=== PATIENT | female | born 1985 | race Caucasian/White ===

== ENCOUNTER → 2016-05-14 | Outpatient (CLI) | payer MEDICAID ==
[~2016-05-14] MED LIST: ACET325T33 PO; CEPH-443 PO
--- NOTE | 2016-05-14 11:15 | RADRPT ---
PROCEDURE: XR Chest. CLINICAL INDICATION: Positive PPD TECHNIQUE: Chest PA. COMPARISON: No comparison available. FINDINGS: The mediastinal structures are unremarkable. The heart is normal in size and configuration. The pu lmonary vascularity is normal. The lung grace are unremarkable. No consolidation is identified. The pleural spaces are unremarkable. The axial skeleton is unremarkable. There is no radiographic evidence of tuberculosis. IMPRESSION: No active intrathoracic disease. RPTAT: HGDB .Artemio Milton MD, MD Date Time Electronically viewed and signed by .Artemio Milton MD, MD on 05/14/2016 11:14 .B/
== END | disposition home or self-care (01) ==
LOC: RAD 10:36
PROVIDERS: ATTEND Obstetrics & Gynecology
DX: R76.11 Nonspecific reaction to tuberculin skin test without active tuberculosis (principal); Z11.1 Encounter for screening for respiratory tuberculosis
CPT/HCPCS: 71010

== ENCOUNTER 2016-05-16 08:17 | Emergency (ER) | payer MEDICAID ==
[~2016-05-16] VITALS: Ht 154.9 cm; Wt 69.4 kg
[2016-05-16 08:25] VITALS: Ht 154.9 cm; Wt 69.4 kg
[2016-05-16 09:04] LABS: ADD SCAN DIFF NO
[2016-05-16 09:07] LABS: BASOPHILS % 0.2 % (0.0-2.0); EOSINOPHILS # 0.1 10^3/ul (0.0-0.5); EOSINOPHILS % 1.2 % (0.0-7.0); HEMATOCRIT 39.1 % (37.0-47.0); HEMOGLOBIN 13.4 g/dl (12.0-16.0); LYMPHOCYTES # 1.9 10^3/ul (0.8-2.9); LYMPHOCYTES % 18.5 % (15.0-51.0); MEAN CORPUSCULAR HEMOGLOBIN 30.2 pg (29.0-33.0); MEAN CORPUSCULAR HGB CONC 34.3 g/dl (32.0-37.0); MEAN CORPUSCULAR VOLUME 88.1 fl (82.0-101.0); MEAN PLATELET VOLUME 9.6 fl (7.4-10.4); MONOCYTE # 0.4 10^3/ul (0.3-0.9); MONOCYTES % 4.2 % (0.0-11.0); NEUTROPHIL # 7.6 10^3/ul (1.6-7.5); NEUTROPHILS % 75.5 % (39.0-77.0); PLATELET COUNT 266 10^3/UL (140-415); RED BLOOD COUNT 4.44 10^6/ul (4.20-5.40); RED CELL DISTRIBUTION WIDTH 12.5 % (11.5-14.5); WHITE BLOOD COUNT 10.1 10^3/ul (4.8-10.8)
--- NOTE | 2016-05-16 09:15 | RADRPT ---
PROCEDURE: US OB. CLINICAL INDICATION: Size and dates , pelvic pain TECHNIQUE: Multiple sonographic images of the pelvis and gravid uterus were obtained. The images were reviewed on a PACS workstation. COMPARISON: No prior studies are available for comparison. FINDINGS: There is a single viable intrauterine gestation. Cardiac activity is present with 148 beats per min blackfeet. There is a variable presentation. The placenta is posterior. There is no evidence for an abruption or placenta previa. There is a normal amount of amniotic fluid with a MVP = 3.3 cm. Measurements were made in order to determine age. The results are as follows: BPD =2.9. cm HC =10.3 cm AC =9.7 cm FL =1.6 cm Estimated gestational age of approximately 15 weeks and 1 day based on ultrasound measurements. Clinical age: 15 weeks and 1 day. The estimated date of delivery is 11/06/16, based on ultrasound measurements. The EFW = 117 g, 41.2%, based on LMP age. The ovaries were not visualized. RPTAT: AA IMPRESSION: Single viable intrauterine gestation of approximately 15 weeks and 1 day based on ultrasound measur ements. .Ravindra Carrington MD, Date Time Electronically viewed and signed by .Ravindra Carrington MD, on 05/16/2016 09:15 .S/
[2016-05-16 09:16] LABS: ALBUMIN 4.1 g/dl (3.3-4.9)
[2016-05-16 09:19] LABS: CREATININE 0.38 mg/dl (0.44-1.00); TOTAL PROTEIN 8.2 g/dl (6.1-8.1)
--- NOTE | 2016-05-16 09:19 | ERD ---
ER Documentation Chief Complaint Date/Time DATE: 05/16/16 TIME: 09:18 Chief Complaint 14 weeks left LLQ pain HPI This is a 30-year-old female states that she is 14 weeks presenting to the emergency room complaining of left upper quadrant abdominal pain since 3:00 this morning. Patient states the pain comes and goes and she rates it around 5 out of 10. Patient denies any nausea, vomiting, diarrhea. Patient denies any vaginal bleeding or dysuria. She denies taking any other medications. Denies any medical problems. Denies fever ROS All systems reviewed and are negative except as per history of present illness. Medications Home Meds Active Scripts Cephalexin* (Keflex*) 500 Mg Capsule, 500 MG PO QID for 7 Days, CAP Prov:JUSTO BENTNO PA-C 05/16/16 Acetaminophen* (Tylenol*) 325 Mg Tablet, 650 MG PO Q4H Y for MILD PAIN LEVEL 1-3 , #30 TAB Prov:JUSTO BENTON PA-C 05/16/16 Allergies Allergies: Coded Allergies: No Known Allergy (Unverified , 05/16/16) PMhx/Soc Medical and Surgical Hx: pt denies Medical Hx, pt denies Surgical Hx Hx Alcohol Use: No Hx Substance Use: No Hx Tobacco Use: No Physical Exam Vitals Vital Signs Date Time Temp Pulse Resp B/P Pulse Ox O2 Delivery O2 Flow Rate FiO2 05/16/16 08:25 98.0 75 18 102/65 100 Physical Exam GENERAL: well-developed/well-nourished, in no apparent distress, non-toxic appearing HENT: NC/AT, moist mucous membranes EYES: Conjunctiva normal NECK: Supple, no lymphadenopathy PULM: CTA bilaterally, no rales, rhonchi, or wheezing heard CV: Normal S1S2, RRR, good capillary refill GI: Soft, distended due to , mild tender to palpation left upper quadrant Normal bowel sounds, no masses or organomegaly felt on exam No gross peritonitis, no bruits Negative Rovsing, negative Potts, negative McBurney's point, Negative CVAT BACK: No masses EXT: No clubbing, cyanosis, or edema NEURO: Alert and Orientated SKIN: Intact, normal turgor PSYCH: Normal mood and mentation Result Diagram: 05/16/16 0835 05/16/16 0835 Results 24 hrs Laboratory Tests Test 05/16/16 08:35 05/16/16 09:25 Alanine Aminotransferase (ALT/SGPT) 28IU/L Albumin 4.1g/dl Albumin/Globulin Ratio 1.00 Alkaline Phosphatase 85IU/L Anion Gap 18 Aspartate Amino Transf (AST/SGOT) 22IU/L Basophils # 0.010^3/ul Basophils % 0.2% Beta HCG, Quantitative 83253.0mIU/ml Blood Urea Nitrogen 4mg/dl Calcium Level 9.3mg/dl Carbon Dioxide Level 24mmol/L Chloride Level 102mmol/L Creatinine 0.38mg/dl Direct Bilirubin 0.00mg/dl Eosinophils # 0.110^3/ul Eosinophils % 1.2% Globulin 4.10g/dl Glucose Level 86mg/dl Hematocrit 39.1% Hemoglobin 13.4g/dl Indirect Bilirubin 0.0mg/dl Lipase 41U/L Lymphocytes # 1.910^3/ul Lymphocytes % 18.5% Mean Corpuscular Hemoglobin 30.2pg Mean Corpuscular Hemoglobin Concent 34.3g/dl Mean Corpuscular Volume 88.1fl Mean Platelet Volume 9.6fl Monocytes # 0.410^3/ul Monocytes % 4.2% Neutrophils # 7.610^3/ul Neutrophils % 75.5% Nucleated Red Blood Cells # 0.010^3/ul Nucleated Red Blood Cells % 0.0/100WBC Platelet Count 14428^3/UL Potassium Level 4.0mmol/L Red Blood Count 4.4410^6/ul Red Cell Distribution Width 12.5% Sodium Level 140mmol/L Total Bilirubin 0.0mg/dl Total Protein 8.2g/dl White Blood Count 10.110^3/ul Urine Bacteria FEW Urine Bilirubin NEGATIVE Urine Clarity HAZY Urine Color LT. YELLOW Urine Glucose NEGATIVE% Urine Hemoglobin TRACE Urine Ketones NEGATIVE Urine Leukocyte Esterase TRACE Urine Microscopic RBC NONE SEEN/HPF Urine Microscopic WBC 2-5/HPF Urine Nitrite NEGATIVE Urine Specific [place] <=1.005 Urine Squamous Epithelial Cells MODERATE Urine Total Protein NEGATIVE Urine Urobilinogen 0.2 E.U./dL Urine pH 6.5 OB ultrasound: There is a single viable intrauterine gestation. Cardiac activity is present with 148 beats per minute. There is a variable presentation. The placenta is posterior. There is no evidence for an abruption or placenta previa. There is a normal amount of amniotic fluid with a MVP = 3.3 cm. Measurements were made in order to determine age. The results are as follows: BPD = 2.9. cm HC = 10.3 cm AC = 9.7 cm FL = 1.6 cm Estimated gestational age of approximately 15 weeks and 1 day based on ultrasound measurements. Clinical age: 15 weeks and 1 day. The estimated date of delivery is 11/06/16, based on ultrasound measurements. The EFW = 117 g, 41.2%, based on LMP age. The ovaries were not visualized. RPTAT: AA IMPRESSION: Single viable intrauterine gestation of approximately 15 weeks and 1 day based on ultrasound measurements. Procedures/MDM This is a 30-year-old female states that she is 14 weeks presenting to the emergency room complaining of mild to moderate left upper quadrant abdominal pain that comes and goes since 3:00am. On examination patient was mildly tender to palpation in the left upper quadrant. My differentials include but not limited to urinary tract infection, pyelonephritis , nephrolithiasis, pancreatitis, cholecystitis, fatty liver, diverticulitis, or other acute abdominal conditions. Lab work was done in the ED, Lab work was drawn. CBC did not show any evidence of leukocytosis or anemia. CMP did not show any evidence of renal, liver, or electrolyte abnormalities. Lipase was normal. UA did show trace leukocyte esterase and 2-5 white blood cell count therefore patient will be empirically treated for a urinary tract infection with outpatient Keflex treatment. An ultrasound was done in the ED and showed a single viable intrauterine gestation without any evidence of ectopic, ovarian torsion or . A gallbladder ultrasound was done in the ED and it showed evidence of fatty liver, I discussed the patient that she would need to follow- up with her primary care physician regarding this. I reexamined patient and she has very mild pain in the left upper quadrant, due to her I did not want to do a CT scan due to the risks outweigh the benefits at this time. I discussed with patient to follow-up at this facility tomorrow or sooner if she continues to have pain for any worsening signs or symptoms or not improving as expected. I discussed to follow-up with her primary care physician and OB/ [facility]. Prescription Keflex and Tylenol was provided. Patient understands and agrees with this plan OB ultrasound: Single viable intrauterine gestation of approximately 15 weeks and 1 day based on ultrasound measurement Gallbladder ultrasound: Fatty infiltration of the liver. No evidence of gallstones. Departure Diagnosis: Primary Impression: Abdominal pain Condition: Stable JUSTO BENTON PA-C May 16, 2016 09:19
[2016-05-16 09:20] LABS: CALCIUM 9.3 mg/dl (8.4-10.2)
--- NOTE | 2016-05-16 09:33 | RADRPT ---
PROCEDURE: US Abdomen. CLINICAL INDICATION: abdominal pain TECHNIQUE: Multiple real-time images were acquired of the patient's right upper quadrant abdomen a nd retroperitoneum utilizing a high resolution transducer. COMPARISON: None FINDINGS: The liver demonstrates increased echogenicity. The liver is normal in size and no focal solid lesio ns are seen. The liver measures 16.6 cm in length. The portal vein is patent with normal direction o f flow. No intrahepatic biliary dilatation is seen. No gallstones are identified within the gallbladder. There is no pericholecystic fluid or gallbladd er wall thickening. The common bile duct measures 4 mm in maximal dimension. The visualized portions of the pancreas are unremarkable. The tail of the pancreas is not seen. No free fluid is identified. The right kidney is normal in size, and demonstrate normal echogenicity and cortical thickness. The right kidney measures 11.9 cm in long dimension. There is no evidence of hydronephrosis. There are no kidney stones. RPTAT: AA IMPRESSION: Fatty infiltration of the liver. No evidence of gallstones. .Ravindra Carrington MD, Date Time Electronically viewed and signed by .Ravindra Carrington MD, MD on 05/16/2016 09:32 .S/
[2016-05-16 09:46] LABS: ADD UMIC YES; URINE BILIRUBIN (Dip) NEGATIVE (NEGATIVE); URINE BLOOD (Dip) TRACE (NEGATIVE); URINE COLOR LT. YELLOW (YELLOW); URINE GLUCOSE (Dip) NEGATIVE (NEGATIVE); URINE KETONES (Dip) NEGATIVE (NEGATIVE); URINE LEUKOCYTE ESTERASE (Dip) TRACE (NEGATIVE); URINE NITRITE (Dip) NEGATIVE (NEGATIVE); URINE TOTAL PROTEIN (Dip) NEGATIVE (NEGATIVE); URINE UROBILINOGEN (Dip) 0.2 E.U./dL (0.1-1.0)
[2016-05-16 09:56] LABS: URINE RBCS NONE SEEN /HPF (0)
[2016-05-16 09:57] LABS: BACTERIA,URINE FEW; SQUAMOUS EPITHELIAL CELL,UR MODERATE
[2016-05-16] MEDS ORDERED: ACET325T33 PO (10:13)
[2016-05-16] MEDS ORDERED: CEPH-443 PO (10:27)
== END 2016-05-16 10:34 | disposition home or self-care (01) ==
LOC: FTE 08:17
DX: O26.892 Other specified pregnancy related conditions, second trimester (principal); R10.12 Left upper quadrant pain; R10.2 Pelvic and perineal pain; Z3A.15 15 weeks gestation of pregnancy
CPT/HCPCS: 36415; 76705; 76805; 80053; 81001; 83690; 84702; 85025; Z7502; 81003

== ENCOUNTER 2016-11-01 07:45 | Inpatient (IN) | payer MEDICAID ==
[~2016-11-01] VITALS: Ht 152.4 cm; Wt 82.7 kg
[2016-11-01] VITALS (12 sets, daily range): BP systolic 90–105; BP diastolic 54–64; PULSE 67–96; RESP 18–19; Ht 152.4 cm; Wt 82.7 kg
[~2016-11-01 07:45] MED LIST changes: +OXYTOCIN 30 UNITS/LR 500 ML BAG IV ONE
[2016-11-01] MEDS ORDERED: PRENAT PO (08:00)
[2016-11-01] MEDS ORDERED: LACTATED RINGER'S 1,000 ML IV PRN (09:06)
[2016-11-01] MEDS ORDERED: METHYLERGONOVINE 0.2 MG INJ IM PRN ×2 (09:30→22:30)
[2016-11-01] MEDS ORDERED: AMPICILLIN 2 GM/NS (PMX) 100 ML IV ONE (09:30)
[2016-11-01] MEDS ORDERED: OXYTOCIN 30 UNITS/LR 500 ML IV PRN ×2 (09:30→22:30)
[2016-11-01] MEDS ORDERED: LIDOCAINE 1% (MPF) 30 ML INJ INJ PRN (09:30)
[2016-11-01] MEDS ORDERED: CARBOPROST 250 MCG INJ IM PRN ×2 (09:30→22:30)
[2016-11-01] MEDS ORDERED: IBUPROFEN 600 MG TAB PO PRN (09:30)
[2016-11-01] MEDS ORDERED: MISOPROSTOL 200 MCG TAB PR PRN ×2 (09:30→22:30)
[2016-11-01] MEDS ORDERED: OXYTOCIN 30 UNITS/LR 500 ML IV SCH ×3 (09:30→11:30)
[2016-11-01] MEDS ORDERED: BUTORPHANOL 2 MG INJ IV PRN (09:30)
[2016-11-01] MEDS: LACTATED RINGER'S 1,000 ML IV SCH ×2 (09:55→18:28)
[2016-11-01 10:02] LABS: BASOPHILS % 0.2 % (0.0-2.0); EOSINOPHILS # 0.1 10^3/ul (0.0-0.5); EOSINOPHILS % 0.5 % (0.0-7.0); HEMATOCRIT 36.8 % (37.0-47.0); HEMOGLOBIN 12.4 g/dl (12.0-16.0); LYMPHOCYTES # 1.6 10^3/ul (0.8-2.9); LYMPHOCYTES % 14.3 % (15.0-51.0); MEAN CORPUSCULAR HGB CONC 33.7 g/dl (32.0-37.0); MONOCYTE # 0.6 10^3/ul (0.3-0.9); MONOCYTES % 5.1 % (0.0-11.0); NEUTROPHILS % 79.4 % (39.0-77.0); PLATELET COUNT 248 10^3/UL (140-415); RED BLOOD COUNT 4.28 10^6/ul (4.20-5.40); RED CELL DISTRIBUTION WIDTH 13.2 % (11.5-14.5); WHITE BLOOD COUNT 11.3 10^3/ul (4.8-10.8)
[2016-11-01 10:10] LABS: INR 0.95; PARTIAL THROMBOPLASTIN TIME 28.1 Sec (25.0-35.0); PROTIME 12.7 Sec (12.2-14.2)
--- NOTE | 2016-11-01 10:58 | TRIAGE ---
OB Triage Datetime Report Generated by CPN: 11/01/2016 08:27 Datetime: 11/01/2016 08:03 Vaginal Exam Dilatation (cms): 2.5 Effacement (%): 50 Station: -2 Exam By: ashlyn Vaginal Bleeding: None Cervix, Consistency: Moderate Cervix, Position: Posterior Datetime: 11/01/2016 07:58 Assessment Type: Triage Maternal Assessment Level of Consciousness: Fully Conscious DTR's/Clonus: DTRs 2+; No Clonus Headache: Denies Blurred Vision: No Respiratory Effort: Unlabored; Regular Rhythm; Equal Expansion Breath Sounds, Left: Clear and Equal Breath Sounds, Right: Clear and Equal Nausea/Vomiting: Denies RUQ Epigastric Pain: Denies Lower Extremities Edema: None Degree: None Upper Extremities Edema: None Degree: None Facial Edema: None Fall Risk Assessment History of Falling: (0) No Secondary Diagnosis: (0) No Ambulatory Aid: (0) Bedrest/Nurse Assist IV Therapy: (0) No Gait: (0) Normal/Bedrest/Immobile Mental Status: (0) Oriented to Own Ability Fall Score: 0 Fall Risk Score Definition: No Risk: No action required Datetime: 11/01/2016 07:56 Labor Evaluation Monitor Mode: External Heart Rate Monitor Mode: External US Datetime: 11/01/2016 07:55 EGA: 39.1 Datetime: 11/01/2016 07:52 Time of Arrival: 11/01/2016 07:41 Arrived By: Wheelchair Arrived From: Home Chief Complaint: PT HERE C/O UC'S SINCE 399 Movement: Present Contractions: Irregular Rupture of Membranes: Denies Vaginal Bleeding: None Vaginal Discharge: Denies Recent Sexual Intercouse: Denies Abdominal Trauma: Not Applicable Patient Complaints: Contractions; Cramping; Back Pain Time Provider Notified: 11/01/2016 08:25 Provider Notified: COLLEEN Initial Plan: DARREN/AARON
[2016-11-01] MEDS ORDERED: AMPICILLIN 1 GM/NS (PMX) 50 ML IV SCH (13:00)
--- NOTE | 2016-11-01 13:00 | HP ---
Date/Time of Note Date/Time of Note DATE: 11/01/16 TIME: 12:59 OB - History Hx of Present Free Text/Dictation IN ACTIVE LABOR Care: Good Care Ultrasounds: Normal mid trimester US Obstetrical Complications: None Medical Complications: None Past Family/Social History * Past Medical, Surgical, Family and Obstetric Histories reviewed from chart. OB Admission Exam Vital Signs Vital Signs Vital Signs Date Time Temp Pulse Resp B/P Pulse Ox O2 Delivery O2 Flow Rate FiO2 11/01/16 08:01 98.4 81 18 105/64 97 Room Air Physical Exam HEENT: WNL Heart: Rhythm Normal Lungs: Clear, Equal Abdomen: WNL Extremities: Normal Reflexes: Normal Cervical Dilatation: 3cm Station: Ballotable Membranes: Ruptured Amniotic Fluid: Clear Accelerations: Accelerations Present Decelerations: No Decelerations Varibility: Marked Last 72 hours Lab Results CBC & BMP 11/01/16 09:12 OB Assessment/Plan Plan: Expectant Management CANDIS MACIAS MD Nov 01, 2016 13:00
[2016-11-01] MEDS ORDERED: CEFAZOLIN 2 GM/50 ML (PMX) 50 ML IVPB ONE (17:21)
[2016-11-01] MEDS ORDERED: morphine SULFATE/PF (10 MG/10 ML) INJ ONE (17:28)
[2016-11-01] MEDS ORDERED: FENTAnyl 50 MCG/ML VIAL ONE (17:29)
[2016-11-01] MEDS ORDERED: CEFAZOLIN 2 GM/50 ML (PMX) 50 ML IV SCH (17:30)
[2016-11-01] MEDS ORDERED: PHENYLephrine (100 MCG/ML) 5ML SYG ONE (17:32)
[2016-11-01] MEDS ORDERED: ONDANSETRON 4 MG INJ ONE (17:55)
[2016-11-01] MEDS ORDERED: DEXAMETHASONE 4 MG/ML 1 ML INJ ONE (17:55)
--- NOTE | 2016-11-01 18:05 | OPR ---
Operative Report Planned Procedure Free Text/Dictation term preg. in labor had variable decleration , on vaginal exam had cord prolapse next to the side of the head. Pt. for emergency c/s Procedure date Nov 01, 2016 Performed by: CANDIS MACIAS MD Assisting provider: CHET MORGAN MD Anesthesia Type: spinal Procedure Description Under satisfactory spinal anesthesia, the patient was prepped and draped and placed in a supine position, tilted to the left. Pfannenstiel incision was made , carried through the subcutaneous tissue. Bleeders brought under control with electrocautery. Fascia incised to the length of the incision. Rectus muscles from the fascia, divided midline. Peritoneum exposed, entered through a transverse incision. Exploration of abdomen revealed gravid uterus. Bladder flap was developed. Transverse incision was made in the lower segment of the uterus. Amniotic sac ruptured. [clear ] amniotic fluid noted. [] Nasal oropharyngeal suction was performed. The baby was handed to the team for immediate attention. The placenta was delivered manually intact.cord gases are sent out Uterine cavity was cleaned with wet sponge and drainage established. Uterus closed in 2 layers using one monocryl [] in continuous fashion. Peritoneal cavity irrigated with warm saline. Sponge, needle and instrument count reported to be correct. Abdominal peritoneum closed with [] continuously]. Fascia closed with one monocryl [], and skin closed with lobo. Estimated blood [id number]. Post-Procedure Findings: Live Baby [], Apgars [] and [], weight [], position [], [] presentation []cord. Specimen removed: Yes Specimen description placenta Complications: None Pt Condition post procedure: stable Disposition: PACU Physician Certification I, the undersigned physician, hereby certify that I have discussed the procedure described in this consent form with this patient (or the patient's legal dermatology sales representative), including: * The risk and benefits of the procedure; * Any adverse reactions that may reasonably be expected to occur; * Any alternative efficacious methods of treatment which may be medically viable ; * The potential problems that may occur during recuperation; * Potential for blood transfusion and associated risks/benefits; and * Any research or economic interest I may have regarding this treatment. I further certify that the patient/legally responsible person was encouraged to ask question and that all questions were answered. CANDIS MACIAS MD Nov 01, 2016 18:05
[2016-11-01 18:17] LABS: AADO2 Cord Arterial 25.5 mmHg; Arterial Cord Blood pCO2 90.5 mmHG (25-50); CBA Base Excess -13.9 mmol/L; CBA Oxygen Sat 16.4 mmHG; CBA Total Hemglobin 17.2 g/dl; Cord Blood Arterial pO2 15.9 mmHG (15.0-45.0); MODE ROOM AIR; MetHgb Cord Arterial 1.9 %
[2016-11-01 18:21] LABS: CBV Base Excess -11.3 mmol/L; CBV COHb 1.4 %; CBV Oxygen Sat 68.8 mmHG; CBV Total Hemglobin 18.8 g/dl; Cord Blood Venous AADO2 59.4 mmHg; Cord Blood Venous pO2 35.8 mmHG (15.0-45.0); MODE ROOM AIR; MetHgb Cord Venous 1.2 %; Sample Type CBV
[2016-11-01] MEDS ORDERED: HYDROmorphONE 1 MG/ML SYG IV PRN ×2 (18:30)
[2016-11-01] MEDS ORDERED: KETOROLAC 30 MG INJ IV PRN (18:30)
[2016-11-01] MEDS ORDERED: ONDANSETRON 4 MG INJ IV PRN (18:30)
[2016-11-01] MEDS ORDERED: DIPHENHYDRAMINE 50 MG INJ IV PRN (18:30)
[2016-11-01] MEDS ORDERED: ZOLPIDEM 5 MG TAB PO PRN (18:30)
[2016-11-01] MEDS ORDERED: NALOXONE (0.4 MG/ML) INJ IV PRN (18:30)
[2016-11-01] MEDS ORDERED: HYDROCODONE/APAP (5/325) TAB PO PRN (22:30)
[2016-11-01] MEDS ORDERED: NACL 0.9% 3 ML SYG IV SCH (22:30)
[2016-11-01] MEDS ORDERED: NA PHOSPHATE/BIPHOS 133 ML ENEMA PR PRN (22:30)
[2016-11-01] MEDS ORDERED: LANOLIN 7 GM TUBE TOP PRN (22:30)
[2016-11-01] MEDS: OXYTOCIN 30 UNITS/LR 500 ML IV SCH (22:33)
[2016-11-02] VITALS (7 sets, daily range): BP systolic 89–106; BP diastolic 47–58; PULSE 69–100; RESP 16–19
[2016-11-02] MEDS: OXYTOCIN 30 UNITS/LR 500 ML IV SCH (02:47)
[2016-11-02] MEDS: LACTATED RINGER'S 1,000 ML IV SCH ×4 (07:19→22:02)
--- NOTE | 2016-11-02 08:41 | QN ---
Documentation Comment doing well vss abd soft oob today CANDIS MACIAS MD Nov 02, 2016 08:41
--- NOTE | 2016-11-02 08:42 | DS ---
Date/Time of Note Date/Time of Note DATE: 11/02/16 TIME: 08:41 Discharge Summary Admission/Discharge Info Admit Date/Time Nov 01, 2016 at 08:45 Discharge Date/Time Discharge Diagnosis term preg Patient Condition: Good Hospital Course unremarkable Home Meds Reported Medications Multivit/Min/Fol Ac/Iron/Pren* ( S*) 1 Tab Tab, 1 TAB PO DAILY, TAB 11/01/16 Discontinued Scripts Cephalexin* (Keflex*) 500 Mg Capsule, 500 MG PO QID for 7 Days, CAP Prov:JUSTO BENTON PA-C 05/16/16 Acetaminophen* (Tylenol*) 325 Mg Tablet, 650 MG PO Q4H Y for MILD PAIN LEVEL 1-3 , #30 TAB Prov:JUSTO BENTON PA-C 05/16/16 Primary Care Provider Care Physician No Primary Pending Labs Laboratory Tests Test 11/01/16 09:12 11/01/16 18:09 11/01/16 18:12 White Blood Count 11.310^3/ul (4.8-10.8) Red Blood Count 4.2810^6/ul (4.20-5.40) Hemoglobin 12.4g/dl (12.0-16.0) Hematocrit 36.8% (37.0-47.0) Mean Corpuscular Volume 86.0fl (82.0-101.0) Mean Corpuscular Hemoglobin 29.0pg (29.0-33.0) Mean Corpuscular Hemoglobin Concent 33.7g/dl (32.0-37.0) Red Cell Distribution Width 13.2% (11.5-14.5) Platelet Count 92609^3/UL (140-415) Mean Platelet Volume 10.0fl (7.4-10.4) Neutrophils % 79.4% (39.0-77.0) Lymphocytes % 14.3% (15.0-51.0) Monocytes % 5.1% (0.0-11.0) Eosinophils % 0.5% (0.0-7.0) Basophils % 0.2% (0.0-2.0) Nucleated Red Blood Cells % 0.0/100WBC (0.0-0.0) Neutrophils # (Manual) 910^3/ul (1.7-7.5) Lymphocytes # 1.610^3/ul (0.8-2.9) Monocytes # 0.610^3/ul (0.3-0.9) Eosinophils # 0.110^3/ul (0.0-0.5) Basophils # 0.010^3/ul (0.0-0.1) Nucleated Red Blood Cells # 0.010^3/ul (0.0-0.0) Prothrombin Time 12.7Sec (12.2-14.2) Prothrombin Time Ratio 1.0 INR International Normalized Ratio 0.95 Activated Partial Thromboplast Time 28.1Sec (25.0-35.0) Rapid Plasma Reagin NONREACTIVE (NR) Hepatitis B Surface Antigen NEGATIVE (NEGATIVE) Blood Gas Specimen Source Blood arterial CBV Arterial Blood Date Drawn 11/01/2016 6:09:07 PM 11/01/2016 6:12:01 PM Arterial Blood Gas Puncture Site CORD CORD Missael Test N/A N/A Cord Blood Carboxyhemoglobin 0.3% 1.4% Cord Arterial Blood pH 6.970 (7.240-7.400) Cord Arterial Blood PCO2 90.5mmHG (25-50) Cord Arterial Blood PO2 15.9mmHG (15.0-45.0) Cord Arterial Blood HCO3 20.4mmol/L (22.0-29.0) Cord Arterial Blood Base Excess -13.9mmol/L POC Cord Arterial Blood O2 Sat 16.4mmHG Cord Arterial Blood Hemoglobin 17.2g/dl Cord Arterial Blood Oxyhemoglobin 16.0% Cord Arterial Blood Methemoglobin 1.9% Blood Gas A-a O2 Differential 25.5mmHg 59.4mmHg Blood Gas Temperature 37.0C 37.0C Blood Gas Modality ROOM AIR ROOM AIR FiO2 21.0% 21.0% Blood Gas Critical Value Read Back Melia LUNA RN Blood Gas Notified Whom GEOVANI OLIVO Blood Gas Notified Time 11/01/2016 6:17:38 PM 11/01/2016 6:20:47 PM Cord Venous Blood pH 7.187 Cord Venous Blood PCO2 45.5mmHG (23-50) Cord Venous Blood PO2 35.8mmHG (15.0-45.0) Cord Venous Blood HCO3 16.9mmol/L (22.0-29.0) Cord Venous Blood Base Excess -11.3mmol/L POC Cord Venous Blood Oxygen Sat 68.8mmHG Cord Venous Blood Hemoglobin 18.8g/dl Cord Venous Blood Oxyhemoglobin 67.0% Cord Venous Blood Methemoglobin 1.2% CANDIS MACIAS MD Nov 02, 2016 08:42
[2016-11-02 09:43] LABS: BASOPHILS % 0.2 % (0.0-2.0); EOSINOPHILS % 0.2 % (0.0-7.0); HEMOGLOBIN 10.1 g/dl (12.0-16.0); LYMPHOCYTES # 1.7 10^3/ul (0.8-2.9); LYMPHOCYTES % 9.6 % (15.0-51.0); MEAN CORPUSCULAR HEMOGLOBIN 29.3 pg (29.0-33.0); MEAN CORPUSCULAR HGB CONC 33.7 g/dl (32.0-37.0); MEAN PLATELET VOLUME 9.8 fl (7.4-10.4); MONOCYTE # 1.3 10^3/ul (0.3-0.9); NEUTROPHILS % 82.4 % (39.0-77.0); PLATELET COUNT 219 10^3/UL (140-415); RED BLOOD COUNT 3.45 10^6/ul (4.20-5.40); RED CELL DISTRIBUTION WIDTH 13.3 % (11.5-14.5)
[2016-11-02 12:17] LABS: Sample Type CBA
[2016-11-02] MEDS: OXYCODONE/ACETAMINOPHEN (5/325) TAB PO PRN (20:37)
[2016-11-02] MEDS: IBUPROFEN 800 MG TAB PO SCH (22:02)
[2016-11-03 03:40] VITALS: BP 97/56; PULSE 85; RESP 19
[2016-11-03] MEDS: IBUPROFEN 800 MG TAB PO SCH ×3 (05:28→22:17)
[2016-11-03] MEDS: LACTATED RINGER'S 1,000 ML IV SCH (06:02)
[2016-11-03] MEDS: OXYCODONE/ACETAMINOPHEN (5/325) TAB PO PRN ×3 (06:17→19:52)
[2016-11-03 08:15] VITALS: BP 92/57; PULSE 85; RESP 18
[2016-11-03 15:50] VITALS: BP 97/57; PULSE 91; RESP 17
--- NOTE | 2016-11-03 18:18 | QN ---
Documentation Comment DOING WELL VSS ABD SOFT D/C HOME TOMMORROW CANDIS MACIAS MD Nov 03, 2016 18:18
--- NOTE | 2016-11-03 18:18 | DS ---
Date/Time of Note Date/Time of Note DATE: 11/03/16 TIME: 18:18 Discharge Summary Admission/Discharge Info Admit Date/Time Nov 01, 2016 at 08:45 Discharge Date/Time Discharge Diagnosis term preg Patient Condition: Good Hospital Course unremarkable Home Meds Reported Medications Multivit/Min/Fol Ac/Iron/Pren* ( S*) 1 Tab Tab, 1 TAB PO DAILY, TAB 11/01/16 Discontinued Scripts Cephalexin* (Keflex*) 500 Mg Capsule, 500 MG PO QID for 7 Days, CAP Prov:JUSTO BENTON PA-C 05/16/16 Acetaminophen* (Tylenol*) 325 Mg Tablet, 650 MG PO Q4H Y for MILD PAIN LEVEL 1-3 , #30 TAB Prov:JUSTO BENTON PA-C 05/16/16 Primary Care Provider Care Physician No Primary CANDIS MACIAS MD Nov 03, 2016 18:18
--- NOTE | 2016-11-03 18:19 | PD.PPDC ---
BUSINESS RISK ANALYST Discharge Instruction Condition Patient Condition: Good Diet Diet: Resume Regular Diet Activity/Restrictions Activity: Normal Activity May Shower Restrictions: No Exercising No Lifting No Driving No Sexual Activity Nothing in the Vagina No Bala No Tampons, douche Wound/Drain Care Instructions Wound/Drain Care Instructions: Wash with soap and water Keep clean and dry Follow-up Follow-up with Physician: Week/Weeks Return to clinic for [employer] Instructions: Fever greater than 101 Chills Worsening abdominal pain Excessive Vaginal Bleeding More than 2 pads per hour Unable to tolerate diet OB Instructions: Breast Tenderness Depression Blurried Vision Headache Surgical Instructions: Incisional Drainage Incisional Redness CANDIS MACIAS MD Nov 03, 2016 18:19
[2016-11-03 19:45] VITALS: BP 99/53; PULSE 88; RESP 18
[2016-11-04 03:30] VITALS: BP 97/50; PULSE 79; RESP 18
[2016-11-04] MEDS: OXYCODONE/ACETAMINOPHEN (5/325) TAB PO PRN ×2 (03:39→08:36)
[2016-11-04] MEDS: IBUPROFEN 800 MG TAB PO SCH (05:40)
[2016-11-04 08:36] VITALS: BP 89/53; RESP 16
[2016-11-04] MEDS ORDERED: DIPHTH/TET/ACEL PERTUSS (ADULT) 0.5 ML VIAL IM* ONE (09:00)
[2016-11-04] MEDS ORDERED: MEASLES,MUMPS,RUBELLA VACCINE INJ SC* ONE (09:00)
--- NOTE | 2016-11-04 11:25 | QN ---
Documentation Comment POD#3 is stable afebrile No Vb +BM +voids Vs Stable Gen NAD Abd soft NT ND Incision ntact Genitalia No blood at perinium --.DISCHARGE hOME GUERDA HURT M.D. Nov 04, 2016 11:25
== END 2016-11-04 14:54 | disposition home or self-care (01) | DRG 775 ==
LOC: OBT 07:45 → L-D 07:46 → OBT 08:44 → L-D 08:45 → PP1 22:40
PROVIDERS: ADMIT Obstetrics & Gynecology; ATTEND Obstetrics & Gynecology
PROC: 3E033VJ Introduction of Other Hormone into Peripheral Vein, Percutaneous Approach (ICD-10-PCS; 2016-11-01)
PROC: 10E0XZZ Delivery of Products of Conception, External Approach (ICD-10-PCS; principal; 2016-11-01 17:30)
DX: O80 Encounter for full-term uncomplicated delivery (principal); Z37.0 Single live birth; Z3A.39 39 weeks gestation of pregnancy
CPT/HCPCS: 36415; 36600; 82803; 85025; 85610; 85730; 86592; 86900; 86901; 87340; 88307; 90715; 94760; 99464; G0463; J0595; J0690; J1100; J1885; J2274; J2370; J2405; J2590; J3010; J7120